=== PATIENT | male | born 1950 | race Caucasian/White ===

== ENCOUNTER 2019-11-07 10:47 | Inpatient (IN) | payer OTHER ==
[~2019-11-07] VITALS: Ht 182.9 cm; Wt 64.5 kg
[2019-11-07 11:30] LABS: ABSOLUTE NEUTROPHILS 4.5 thou/uL (1.4-8.2); BASOPHILS 0.8 % (0.0-2.0); EOSINOPHILS 3.2 % (0.0-3.0); HEMATOCRIT 41.2 % (42.0-52.0); HEMOGLOBIN 13.5 gm/dL (14.0-18.0); LYMPHOCYTES 22.9 % (24.0-44.0); MCH 33.4 pg (26.0-34.0); MCHC 32.8 g/dL (28.0-37.0); MCV 101.9 fL (80.0-100.0); MONOCYTES 11.3 % (1.0-8.0); PLATELET COUNT 153 thou/uL (150-400); POLYS 61.8 % (36.0-66.0); RBC 4.04 mil/uL (4.50-6.00); RDW 16.2 % (10.5-14.5); WBC 7.3 thou/uL (4.0-11.0)
[2019-11-07 11:40] LABS: ANION GAP 7 mmol/L (7-16); BUN 19 mg/dL (7-18); CALCIUM 9.6 mg/dL (8.5-10.1); CHLORIDE 106 mmol/L (98-107); CO2 30 mmol/L (21-32); CREATININE 1.1 mg/dL (0.7-1.3); GLUCOSE 94 mg/dL (74-106); POTASSIUM 4.1 mmol/L (3.5-5.1); SODIUM 143 mmol/L (136-145)
[2019-11-07 11:52] LABS: MAGNESIUM 2.4 mg/dL (1.8-2.4); TROPONIN-I <0.06 ng/mL (<0.06)
--- NOTE | 2019-11-07 12:48 | NUR ---
PD CALLED, THEY STATE THAT THIS PT HAS NO FILE, NO DL ON FILE. TRANSFERED TO MISSING PERSONS WHO ALSO STATE THAT THEY HAVE NO INFO ON PT
[2019-11-07 12:53] LABS: URINE BILIRUBIN NEGATIVE (Negative); URINE BLOOD NEGATIVE (Negative); URINE CLARITY CLOUDY; URINE COLOR YELLOW; URINE GLUCOSE-RANDOM* NEGATIVE (Negative); URINE KETONES NEGATIVE (Negative); URINE LEUKOCYTES-REFLEX NEGATIVE (Negative); URINE NITRITE-REFLEX NEGATIVE (Negative); URINE PROTEIN (DIPSTICK) NEGATIVE (Negative); URINE SPECIFIC GRAVITY 1.015 (1.005-1.035); URINE UROBILINOGEN 0.2 E.U./dl (0.2-1.0)
[2019-11-07 13:06] LABS: AMP/METHAMP Negative (Negative); BARBITURATES Negative (Negative); BENZODIAZEPINES Negative (Negative); COCAINE Negative (Negative); METHADONE Negative (Negative); OPIATES Negative (Negative); PCP Negative (Negative)
--- NOTE | 2019-11-07 13:43 | NUR ---
I was asked to come and assess Mary Kate to see if he would meet criteria for [facility]. Mary Kate has no teeth; he is difficult to understand. He was referred by Jeffery Salcido NP. Mary Kate has a dx of dementia. He denied and HI/SI then eh stated that he wanted to hurt himself., due to not liking himself. He appears to be paranoia and having some delusions. He is a poor historian. When asked why he presented to the hospital he stated "I need a check up." He kept telling me to "be quite". I consulted Dr. Cardoza. Ddr. Cardoza is will admit this patient to [facility]. The patient is medically stable. Please see lab reports.
--- NOTE | 2019-11-07 14:02 | NUR ---
PT TALKS ABOUT JAVIER BISHOP. NO PD NOTED FOR THAT TOWN SO ANGELIC DOWNEY CALLED AT THIS TIME. PT IS NOT KNOWN TO THIS AREA
--- NOTE | 2019-11-07 14:24 | NUR ---
PT IS NOTED TO HAVE A [facility] MEDICAL CARD. [facility] CALLED AT THIS TIME AND THEY STATES THE COMMUNITY CARE LINE WOULD HAVE INFORMATION FOR ME. THEY GIVE NEXT OF KIN SENIOR MANAGER ASSET PROTECTION/ GURDIAN #[phone]. MESSAGE LEFT
[2019-11-07 16:00] VITALS: BP 119/85
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
[2019-11-07 16:48] LABS: TSH 2.056 uIU/mL (0.358-3.740)
--- NOTE | 2019-11-07 17:48 | NUR ---
IS NOTED TO SMELL STRONGLY OF URINE UPON ARRIVAL TO FLOOR-NOTED TO BE WET FROM MID CHEST TO KNEES-RESISTIVE WITH ATTEMPTS BY NURSING TO CHANGE CLOTHES-STRIKING OUT AT NURSING STAFF-DR. ALANIS AND SECURITY NOTIFIED. GEODON 15MG GIVEN IM LVG WITH ASSIT OF SECURITY AND 3 STAFF-CLOTHING CHANGE AND PERINEAL CARE COMPLETED-SKIN ASSESSMENT COMPLETED DURING PERINEAL CARES NO OPEN AREAS OBSERVED TO SKIN-PURPLE COLORED RASH/BUMPS TO INNER THIGHS BILATERALLY-NO REDNESS OR IRRITATION NOTED. PER ORDER DR. ALANIS NO CONSENTS SIGNED ON ADMIT D/T PT SEVERE COGNITIVE DEFECITS-ADMITTED PER [facility]E ACT. PHONE NUMBER IDENTIFIED BY ER GUARDIAN CONTACTED [phone]. NO ANSWER SO MESSAGE LEFT. ANSWERING MACHINE IDENTIFIES NUMBER COMMERCIAL SERVICE TECHNICIAN LAW OFFICES OF LAURIE ALBARADO-MESSAGE LEFT TO RETURN CALL
--- NOTE | 2019-11-07 17:56 | NUR ---
ROB introduced herself to pt. She could not understand much of what he said accept that "sometimes people don't talk because they have secrets." He also asked SW if she had a . ROB contacted the rehab trainer believed to be pt's guardian and also left a msg asking for a return call. ROB team will continue to follow pt during his stay on this unit.
[2019-11-07 21:53] VITALS: BP 147/80
--- NOTE | 2019-11-07 23:16 | NUR ---
2214 RESUMMED CARE FROM DAY SHIFT, PATIENT IN DAY ROOM TALKING TO SELF SAYING OUT LOUD. PATIENT IS SAYING INAPPROPIATE THINGS LIKE SUCH MY RENETTA AND OTHER PATIENTS CAME TO NURSES STATION TO TELL. WHEN ASKING PATIENT QUESTIONS HE RAMBLES AND YOU CANNOT UNDERSTAND WHAT HE IS SAYING. PATIENT SUSPIOUS WHEN DOING ASSESSMENT, BOWEL SOUNDS PRESENT, LUNGS CLEAR, ABDOMEN SOFT. LEFT MESSAGE FOR LAURIE WIN THE PATIENT'S GUARDIAN TO CALL TO GIVE US INFORMATION ABOUT PATIENT. WILL CONTINUE TO MONITOR PATIENT FOR BEHAVIORS AND SAFETY.
[2019-11-08 07:52] VITALS: BP 115/84
--- NOTE | 2019-11-08 08:29 | EKG ---
[facility] [place] [address] ELECTROCARDIOGRAM REPORT Name: JUDE BESS Room #: [facility]- ADM IN M.R.#: [id number] Admission: 11/07/19 Attend Phys: Juanito Cardoza DO Discharge: Date of : 50 Report #: [id number] THIS REPORT FOR: cc: FAM - Family physician unknown FAM - Family physician unknown Juvenal Quintana MD [facility] THIS REPORT FOR: //name// [facility] ED Test Date: 2019-11-07 Test Time: 11:19:26 Pat Name: JUDE BESS Department: Room: [facility] Gender: M Funeral Arranger: RICHARD : 1950 Requested By: Kiran Moore Order Number: [id number] MD: Juvenal Quintana Measurements Intervals [place] Rate: 88 P: 35 CT: 148 QRS: 40 QRSD: 88 T: 86 QT: 344 QTc: 417 Interpretive Statements Sinus rhythm Abnormal R-wave progression, early transition Abnormal T, consider ischemia, anterior leads No previous ECG available for comparison Electronically Signed On 11-08-2019 8:28:14 SHOE SEWING MACHINE OPERATOR AND TENDER by Juvenal Quintana [email or web address] <ELECTRONICALLY SIGNED> By: Juvenal Quintana MD, FACC 11/08/19 0828 1119 1119 Juvenal Quintana MD, [facility] /EPI
[2019-11-08 11:25] VITALS: BP 115/84
--- NOTE | 2019-11-08 11:35 | NUR ---
ASSUMED CARE AT 0700 THIS MORNING. PT. UP ON THE FLOOR CONTINUALLY TALKING. SOME OF IT IS UNINTELLIGABLE. OTHER IS CALLING STAFF AND PEERS NAMES AND CURSING. "I HATE YOU. I COULD HURT YOU! I COULD MURDER YOU." ARE SOME OF THE THINGS HE IS SAYING. DR. ALANIS STATED HE FOUND OUT THE PT. IS A ELOPED PATIENT FROM [facility]. PT. DOES NOT ANSWER QUESTIONS. HE JUST CONTINUES TO TALK AND TALK. UNABLE TO COMMUNICATE EFFECTIVELY.
--- NOTE | 2019-11-08 12:33 | NUR ---
ROB received a call from alleged guardian Kiran Andujar who said he wants pt back at [facility]. He said pt wandered out of facility, which he has never done before, and ended up in [place]. He said he has been pt's guardian for 30 years. ROB asked Kiran for the guardianship docs and he said " I have court for the next two days. I'll get to it when I can." ROB expressed that it is imperative the hospital receives this doc as it is being reported that he only has conservatorship. He said to SW "well maybe I shouldn't talk to you. You don't have a release for me to be able to talk to you." ROB explained that in order for and the hospital to follow his wishes they need to have the document stating he is guardian. He took SW email info, and said he will "get to it when he can." He then also let SW know that the process is already done so it really doesn't matter at this time. ROB and Dr. Cardoza contacted [facility] in search of the document. They were told by the parts control clerk the document is so old that they have to go into a special file to get it. Dr. Cardoza asked the parts control clerk how to file a complaint about a guardian who may not be as involved as he should due to pt being missing from facility for hours without a report made and his whereabouts known from the facility and the guardian. ROB and Dr. Cardoza were rerouted to the furnace room supervisor who asked the complaint be put on letterhead from the doctor and then faxed; she will then notify the evening sitter. ROB contacted Jasiel Grace with [facility] as she as advised by Dr. Cardoza they would be on the unit to visit pt at 12. At 12:15 Jasiel still had not arrived. She was told by Jasiel they would be on their way soon. ROB asked him if the could provide a medication list as the hospital does not have that. ROB also asked if he could provided the conservatorship/guardianship doc as the hospital needs it. Jasiel said Kiran is conservator and not guardian. ROB reported that Kiran is stating differently and the hospital really needs to know. He reported he would be at the hospital soon. ROB contacted the [facility] transfer team to inquire if they have the document. No answer. ROB lft msg. ROB team will continue to follow pt during his stay on this unit.
[2019-11-08 19:38] VITALS: BP 118/86
--- NOTE | 2019-11-08 21:36 | H ---
[facility] [place] [address] HISTORY AND PHYSICAL Name: JUDE BESS Room #: 527A-A ADM IN M.R.#: [id number] Admission: 11/07/19 Attend Phys: Juanito Cardoza DO Discharge: Date of : 50 Report #: [id number] THIS REPORT FOR: cc: KIM - Family physician unknown FAM - Family physician unknown Juanito Cardoza DO ~ CC: Juanito ALVAREZ unknown DATE OF SERVICE: 11/07/2019 ATTENDING PHYSICIAN: Juanito Cardoza DO. DOCENT COORDINATOR: Dr. Garcia. REASON FOR ADMISSION: Found grossly disoriented and incoherent on the streets in [place], initially brought to the [facility] and then sent to [facility]. HISTORY OF PRESENT ILLNESS: This is a 69-year-old male brought to the [place] [facility] by paramedics after she was picked up on the streets. She is extremely demented. Patient is disoriented and incoherent, cannot answer questions in linear manner. He claims he has too many children. He does say he does not have anywhere to live. He cannot tell me how he has been finding food, usp. He has ugly thoughts. He seems acutely confused, not alert to time and situation. He states he would like to work, but he does not have mental capacity to work given his presentation today. He repeatedly says that he does not want to go to the place he comes from. Last evening, the staff ordered and believed the patient had been living in a different city. The patient has some previous records with [facility]. The patient denies drug or illicit drug use, so that was the subjective from his [facility] crisis assessment and they really did not have any more information. My colleague, Mr. Salcido who saw him there. Then when he was brought to the [facility] really we were not able to get any further history. A huge workup was done. Hematology was H and H is 13.5 and 41.2, white count 7.3, platelet count 153. Chemistry: Sodium 143, potassium 4.1, chloride 106, bicarb 30, anion gap 7, BUN 19, creatinine 1.1, estimated GFR 66, glucose 94, calcium 9.6, magnesium 2.4. Ammonia 12. Troponin less than 0.06. Vitamin B12 of 828. TSH 2.056. Urinalysis was negative, so clean urine, drug screen was negative. VITAL SIGNS: Roughly at the time of Emergency Room presentation, temperature 38.1, pulse 70, respirations 18, BP 147/80. Later decreasing to 115/84, O2 sat 97%. [facility] [address] [place] [address] HISTORY AND PHYSICAL Name: JUDE BESS Room #: 527A-A ADM IN M.R.#: [id number] Admission: 11/07/19 Attend Phys: Juanito Cardoza, DO Discharge: Date of : 50 Report #: [id number] Given his gross degree of disorganization, comprehensive review of systems was not possible. CT head showed mild diffuse cerebral atrophy, no acute intracranial processes. Chest x-ray showed no acute cardiopulmonary abnormality. PHYSICAL EXAMINATION: He ambulates. He is very disheveled. MENTAL STATUS EXAMINATION: This is a well-developed, frail, much older appearing than stated age male. Attention limited. Concentratio n limited. Speech variably coherent. Thought process tangential. Thought content: Intermittent bizarre themes, thought poverty, some psychomotor agitation and psychomotor retardation. Denied SI or HI. Endorses helplessness, hopelessness. Memory grossly impaired. Insight impaired. Judgment impaired. Fund of knowledge well below average. FORMULATION: A 69-year-old male brought by police to [facility] and then sent to us. He is obviously has a home with caregivers and my suspicions were correct. He had eloped from nursing facility though the facility does not provide a memory care. DIAGNOSES: Major neurocognitive disorder, unspecified, with some degree of unspecified behavioral disturbance. Long history of schizophrenia. Comorbidities include none noted. Interestingly, he does have VA card, but does not seem to be helping him in present circumstances. PLAN: Evaluate, stabilize, obtain collateral. I received a call from Mr. Andujar, his alleged guardian and conservator stating he wanted him to go back to [facility]. Jaciel, the junior linux systems administrator at [facility] called me and said Mr. Andujar is his conservator. In any event, I will call the [facility] district court and I needed to pull the orders on ?Guardianship but we will see what they are. In addition, we will need a day or so to complete our usual initial evaluations, so I do not know that I will be able to discharge him today. ESTIMATED LENGTH OF STAY: 3-5 days. STRENGTHS: He has a guardian, place to live. WEAKNESSES: Advanced dementia, long history of schizophrenia [facility] [address] [place] [address] HISTORY AND PHYSICAL Name: JUDE BESS Room #: 527A-A ADM IN M.R.#: [id number] Admission: 11/07/19 Attend Phys: Juanito Cardoza DO Discharge: Date of : 50 Report #: [id number] greater than ninety minutes spect in history and corrdination of care with <ELECTRONICALLY SIGNED> By: Juanito Cardoza DO 11/08/19 2136 1033 1107 Juanito Cardoza DO /nt
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
--- NOTE | 2019-11-09 09:23 | NUR ---
PT OUT OF BED PER DR. QUESADA GETTING HIM OUT OF BED IN W/C TO GO TO GROUP. PT WAS TOO DISRUPTIVE DURING THE GROUP AND HAD TO GO TO BACK OF ROOM. PT RAMBLING AND REPEATING SELF. NO SIGNS OF AGGRESSION AT THIS TIME. PT TOOK AM MEDS CRUSHED IN YOGART. PT DIDN'T REFUSE ANY MEDS.
--- NOTE | 2019-11-09 09:35 | NUR ---
PT TOOK MEDS CRUSHED IN YOGART. PT DID DRINK A WATER PITCHER FULL OF WATER.
[2019-11-09 13:06] VITALS: BP 95/61
--- NOTE | 2019-11-09 15:11 | NUR ---
6479 [id number] Mary Kate came to group late. [facility] group was lead by Melinda in kait. Mary Kate sat in the back of the room talking loudly to himself and someone who was not present. He did not participate in group.
--- NOTE | 2019-11-09 15:50 | NUR ---
PT IN ROOM DURING GROUP TIME [id number], PT SAT QUIETLY. PT HAS BEEN LYING HEAD ON TABLE AND DROOLING EARLIER TODAY. PT TALKING TO SELF.
--- NOTE | 2019-11-09 18:15 | NUR ---
PT UP TO BATHROOM WITH STAND-BY ASSIST. PT HAD LARGE FORMED STOOL. NO ISSUES FROM PATIENT TODAY. PT DID HAVE COPIOUS AMOUNT OF DROOL WHEN SLEEPING TODAY WITH HEAD DOWN ON TABLE IN DINING ROOM.
[2019-11-09 19:59] VITALS: BP 104/61
--- NOTE | 2019-11-09 21:19 | NUR ---
Care assumed of patient at 1915: Patient sleeping in bed at start of shift. Easily arousable. Appears to be calm. Patient responding to name being said. Unable to answer any further questions. Blunted, constricted affect. No aggression shown. Patient started to have mumbled speech when he was awakened for nursing assessment and medication administration. Patient was able to fall back to sleep without difficulty. Patient took HS medication crushed without difficulty. No s/s of SI/HI/AH/VH. No delusional or paranoia behaviors observed. No s/s of pain or discomfort. Patient incontinent of bladder. Compliant during padmini care and linen change. Patient continues to rest quietly at this time.
[2019-11-10 06:17] LABS: CALCIUM 8.5 mg/dL (8.5-10.1); CREATININE 1.1 mg/dL (0.7-1.3); POTASSIUM 4.1 mmol/L (3.5-5.1)
[2019-11-10 08:50] VITALS: BP 116/71
[2019-11-10 09:38] VITALS: BP 116/71
--- NOTE | 2019-11-10 10:03 | NUR ---
ASSUMED CARE AT 0700 THIS MORNING. PT. IN BED. GOTTEN UP BY THIS RN AND ANOTHER RN. HE WAS INCONTINENT AND THE BED WAS WET. PT. CLOTHING CHANGED. LOLITA CARE ADMINISTERED. CLEAN CLOTHING PUT ON PT. ALONG WITH CLEAN BRIEFS. HIS BED WAS CHANGED. PT. GIVEN MORNING MEDICATIONS (CRUSHED AND IN PUDDING). HE TOOK THE MEDICATIONS WITHOUT DIFFICULTY. PT. TAKEN TO THE DINING ROOM FOR BREAKFAST. HE WAS COOPERATIVE WITH ASSESSMENT. HE SAT IN THE DINING ROOM AFTER BREAKFAST WATCHING TV. HE WAS QUIET WHILE SITTING THERE.
[2019-11-10 20:07] VITALS: BP 112/73
--- NOTE | 2019-11-10 21:45 | NUR ---
Care assumed of patient at 1915: Patient sleeping in bed at start of shift. Patient up at approximately 2000, needing to use the bathroom. Continent of bowel and bladder. Fairly steady on his feet. Patient impulsive with movements, ataxia present. Alert and oriented to person only. Confused and forgetful. Denies pain or discomfort. Patient slow to respond to questions during assessment. Denies SI/HI/AH/VH. Patient repeating several sentences over and over. Patient did tell nurse "I don't like you" several times. Patient then also speaking about a godfather and prayer. Patient did tell nurse "you are making me want to hit you" but never acted on it. Nurse stepped away for a couple minutes and when nurse returned, he seemed to forget prior statements. Patient labile, agitated when asked more than a couple questions. Patient took HS medication crushed without difficulty. Declined further HS snack. Patient was able to return to bed after using the bathroom and was able to fall asleep without difficulty. Patient resting quietly in bed at this time.
[2019-11-11 08:52] VITALS: BP 92/62
[2019-11-11 13:03] VITALS: BP 92/62
--- NOTE | 2019-11-11 13:11 | NUR ---
ASSUMED CARE AT 0700 THIS MORNING. PT. IN BED. PT. GOT UP, NEEDED BRIEFS AND PANTS CHANGED DUE TO INCONTINENCE. HE CONTINUES TO BABBLE ON AND MAKES SENSE OCCASIONALLY. OTHERWISE, HE TALKES IN A WORK SALAD, WITH A FEW COHERENT SENTENCES OCCASIONALLY. MOST OF HIS VERBALS ARE THREATENING PEOPLE WITHOUT ACTING ON THOSE THREATS. HE HAS NOT BEEN LOUD TODAY OTHER DAYS. NO LOUD YELLING NOTED. MOSTLY HE WILL SIT WATCHING TV OR PEERS WITHOUT LOTS OF CONVERSATION. TOOK HIS MEDICATIONS CRUSHED IN PUDDING WITOUT PROBLEMS NOTED. DR. GARDINER HERE TO SEE THE PATIENT THIS AFTERNOON.
[2019-11-11 19:42] VITALS: BP 118/82
--- NOTE | 2019-11-12 02:00 | NUR ---
PT IN WC IN DAY ROOM. VERY AGITATED. DENIES PAIN. HEADED TO ROOM TO GO TO BATHROOM. ASSISTED TO BEDSIDE COMMODE. ENCOURAGED TO GO TO BED WHICH HE DID. ENCOURAGED TO TAKE HS MEDS WHICH HE FINALLY DID. RESTING COMFORTABLY. FREQUENT OBSERVATION.
[2019-11-12 08:00] VITALS: BP 95/59
--- NOTE | 2019-11-12 09:24 | NUR ---
SW completed chart review and pt seems to be making gains. and [facility] with the [facility].
--- NOTE | 2019-11-12 11:58 | NUR ---
ROB contacted the [facility] and asked for the contact information for their director in their inpatient unit. ROB was given instead the number to the exchange trouble shooter Dr. Rich [phone]; she was told he would be paged to speak to the [facility] director at [facility]. ROB provided an update to the [facility] director. ROB team will continue to follow pt during his stay on this unit.
--- NOTE | 2019-11-12 14:13 | NUR ---
WITHDRAWN TO ROOM UNTIL APPROX. 1030-SPEECH IS LOUD AND AT TIMES GARBLED AND DIFFICULT TO UNDERSTAND. IS ON [place] RISK D/T UNSTEADY GAIT AND IMPULSIVE ERRATIC BEHAVIOR. ORIENTED TO NAME ONLY-DID COMPLY WITH TAKING AM MEDICATIONS WHOLE. REMOVING CHAIR EXIT ALARM UNDER HIM AND BECAME AGITATED AND STARTED TO YELL LOUDLY AT THIS NURSE WHEN REDIRECTED-ATTEMPTING TO GRAB ARM OF NURSING STAFF. APPETITE FAIR- INCONTINENT OF URINE
[2019-11-12 19:30] VITALS: BP 134/88
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
[2019-11-13 09:12] VITALS: BP 128/84
[2019-11-13 09:51] VITALS: BP 128/84
--- NOTE | 2019-11-13 13:29 | NUR ---
Assumed care aorund 0700. Patient is in room air. Lungs are clear. he is on mechanical ground diet and ensure because he has no teeth. patient denies pain. His speech is not clear: mumbles, gramble and rumblling. This morning he got agitated by the patient next to him because he didnt want him talking to him. Patient meds crushed and he takes with food or pudding. Patient refused to work with PT. He gets agitated quickly especially if someone keeps talking to him. Refused to answer about SI/HI and how he is feeling. Will continue with the plan of care.
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
[2019-11-13 19:21] VITALS: BP 104/75
--- NOTE | 2019-11-13 23:16 | NUR ---
Care assumed of patient at 1915: Patient seated in w/c in the dayroom at start of shift. Patient propelling w/c about dayroom and hallway near nurses station. Patient smiling, waving, calm, cooperative. Alert and oriented to person only. Speaking to himself in mumbled voice. Unable to distinguish what patient was saying. No vulgar or hostile statements heard. Patient compliant with nursing assessment. Patient ate 100% snack independently. Patient took HS medication whole without difficulty. Nurse stated "thank you" once he took his meds. Patient stated "why are you smiling?" Nurse said she was happy, patient then looked away and was not aggressive in any manner. No agitation observed. Patient stated he was tired. Staff assisted him to bed. Incontinent of bladder. Transferred to bed with stand by assist. No difficulties noted. Patient fell to sleep without difficulty and has been resting quietly since.
[2019-11-14 13:14] VITALS: BP 115/73
--- NOTE | 2019-11-14 13:49 | NUR ---
ASSUMED CARE OF PATIENT. PATIENT SITTING IN WC IN [place]. DENIES NEEDS WHEN ASKED IF NEEDING ANYTHING. PATIENT DIFFICULT TO UNDERSTAND WITHOUT GETTING CLOSE TO HIM. PATIENT AT TABLE FOR BREAKFAST, EATING WELL. TAKES MEDS WHOLE WITHOUT DIFFICULTY. THIS AFTERNOON PATIENT REFUSES LAB DRAW, UNABLE TO TALK TO THIS PATIENT IN REGARDS TO LAB DRAW, PATIENT GETS UPSET. WILL ATTEMPT LATER. WILL NOTIFY
--- NOTE | 2019-11-14 16:07 | NUR ---
PATIENT SITTING IN WHEEL CHAIR IN HALLWAY. WHEN ASKED IF HE WOULD LIKE SOME WATER PATIENT SOFTLY RESPONDS BY STATING "NO, DO YOU KNOW WHY I DO NOT WANT TO DRINK OR EAT, BECAUSE THE GODFATHER MUST BE HEALTHY AND I AM NOT HELTHY ANYMORE". FIBER PRODUCT CUTTING MACHINE OPERATOR EXPLAINS THE BENIFIT OF STAYING HYDRATED AND PATIENT REPEATS THE PREVIOUS PHRASE. PATIENT THEN SMILES AND STARTS TO LAUGH. WILL CONTINUE TO OBSERVE FOR BEHAVIORS.
[2019-11-14 16:56] LABS: ABSOLUTE NEUTROPHILS 3.6 thou/uL (1.4-8.2); BASOPHILS 1.2 % (0.0-2.0); EOSINOPHILS 3.7 % (0.0-3.0); HEMATOCRIT 39.7 % (42.0-52.0); HEMOGLOBIN 13.1 gm/dL (14.0-18.0); LYMPHOCYTES 30.3 % (24.0-44.0); MCH 33.1 pg (26.0-34.0); MCV 100.4 fL (80.0-100.0); PLATELET COUNT 180 thou/uL (150-400); POLYS 53.8 % (36.0-66.0); RBC 3.95 mil/uL (4.50-6.00); RDW 15.6 % (10.5-14.5); WBC 6.7 thou/uL (4.0-11.0)
--- NOTE | 2019-11-14 17:06 | NUR ---
ROB did a chart review on pt. He was also discussed in tx team. Pt will be ready for discharge once the [facility] can provide a secure and safe area for him to reside in. SW team will continue to follow pt during his stay on this unit.
[2019-11-14 20:13] VITALS: BP 107/77
[2019-11-14 21:00] VITALS: BP 107/77
--- NOTE | 2019-11-15 00:36 | NUR ---
Assumed care of patient this pm shift. Patient in a wheel chair outside of the [facility]. Patient is calm and cooperative. Patient rambles and is very difficult to understand. Patient does not show any signs of aggression. Patient took medications whole with fluids. Patients affect is blunted. Patient denies pain. Patient denies hi/si. Patients assessment shows clear breath sounds diminished in bases, active bowel sounds, and s1 s2 heard with auscultation. We will continue to monitor.
[2019-11-15 08:59] VITALS: BP 103/66
[2019-11-15 16:05] VITALS: BP 103/66
--- NOTE | 2019-11-15 16:45 | NUR ---
PATIENT HAS BEEN UP AND OUT ON THE UNIT, USES WHEELCHAIR FOR MOBILITY, ABLE TO AMBULATE WITH ASSIST OF ROLLER WALKER WITH STAFF BY HIS SIDE. PATIENT TOOK ALL MEDICATIONS WHOLE WITHOUT DIFFICULTY. PATIENT RESPONDS TO INTERNAL STIMULI, TALKING TO SELF, AND UNSEEN OTHERS. PATIENT IS RELIGIOUSLY PREOCCUPIED, "AM TALKING TO GOD, PRAY ITS GOOD TO PRAY". PATIENT IS EATING MEALS, AND DRINKING FLUID FAIRLY WELL. AFFECT IS FLAT, MOOD IS BLUNTED. PATIENT DENIES SUICIDAL/HOMICIDAL IDEATION, NOT COGNITIVE ENOUGH TO RESPOND TO FURTHER ASSESSMENT QUESTIONS, HE MUMBLES. NO AGGRESSION OR AGITATION NOTED AT THIS TIME, NO SIGN OF ACUTE DISTRESS NOTED, WILL MONITOR FOR SAFETY.
--- NOTE | 2019-11-15 17:08 | NUR ---
ROB contacted the MD transfer line and spoke to Sophia (RN) who said if pt does not need inpatient psych, then he would not be appropiate to come there. ROB explained the email says when he is stable to transfer him there. She said if he has dementia he is not appropiate for their unit and should simply be placed into a facility. ROB explained that the [facility] director has been attempting to contact their director or quality assurance monitor chassis Dr. Rich. She said Dr. Rich is most likely out of the country, and [facility] probably hasn't gotten a call back because they are dealing with the Mejias virus. She took the [facility] director's information down and said she would have someone call. SW team will continue to follow pt during his stay on this unit.
[2019-11-15 20:29] VITALS: BP 111/75
--- NOTE | 2019-11-15 21:56 | NUR ---
Care assumed of patient at 1915: Patient seated in w/c in hallway at start of shift. Patient sat in dayroom or hallway near nurses station for the first part of shift. Patient alert and oriented to person only. Confused and forgetful. Less mumbling and speaking to himself. Patient did have garbled speech, unaware what was said, then he starts to laugh and say "you know". Much more calm and cooperative compared to previous shifts. Patient fed self 100% HS snack of ice cream. Took HS medication whole with water. Denies pain or discomfort. Euthymic affect. Denies SI/HI/AH/VH. No delusional or paranoia behaviors observed. Patient incontinent of bladder. Allowed staff to assist him in changing his clothing and completing padmini care. Patient attempting to complete ADLs independently. Impulsive body movements noted due to ataxia. Good balance, fairly steady gait. Using w/c for locomotion about room and unit. Patient retired to bed without difficulty and is resting quietly at this time.
[2019-11-16 07:20] VITALS: BP 112/58
[2019-11-16 11:23] VITALS: BP 112/58
--- NOTE | 2019-11-16 12:47 | NUR ---
PATIENT WAS IN BED SLEEPING WHEN CARE ASSUMED. WHEN AWOKEN, HE WAS ABLE TO TRANSFER SELF FROM BED TO WHEELCHAIR, BED/CHAIR ALARM IN PLACE. PATIENT IS ABLE TO TRANSFER SELF TO TOILET WITH STANDBY ASSIST. PATIENT TOOK ALL MEDICATION WHOLE WITHOUT DIFFICULTY. PATIENT IS EATING MEALS, AND DRINKING FLUID WELL. PATIENT DENIES SUICIDAL/HOMICIDAL IDEATION, NOT ABLE TO APPROPRIATELY RESPOND TO FURTHER ASSESSMENT QUESTIONS DUE TO COGNITIVE IMPAIRMENT. PATIENT MUMBLES, HE IS FORGETFUL, AND CONFUSED. HE IS CLAM, COOPERATIVE WITH CARE. MOOD IS EUTHYMIC, AFFECT IS BLUNTED. PATIENT HAD URINE INCONTINCE X 1, GOOD PERICARE PROVIDED BY STAFF. NO SIGN OF ACUTE DISTRESS NOTED AT THIS TIME, WILL MONITOR FOR SAFETY.
[2019-11-16 20:23] VITALS: BP 127/83
--- NOTE | 2019-11-16 22:40 | NUR ---
Care assumed of patient at 1915: Patient seated in w/c at first part of shift then shortly retired to bed. Calm, pleasant and cooperative. Mumbled, spontaneous speech. Some words are not able to be understood. Patient did state "I've been taking meds my whole life" when presented with HS meds. Patient then chuckled. Patient has been smiling and appears to be making jokes but are not understood. Patient did ask nurse if he could pray. No speak of the devil, threatening statements or aggression observed. No delusional or paranoia behaviors observed. Denies SI/HI/AH/VH. Denies pain or discomfort. Declined HS snack. Took HS medication whole without difficulty. Incontinent of bladder. Cooperative with padmini care and linen change. Blunted affect observed which appears to be his baseline. Denies depression or anxiety. Patient has been able to rest quietly this shift.
[2019-11-17 08:35] VITALS: BP 107/77
--- NOTE | 2019-11-17 14:42 | NUR ---
COMPLIENT WITH TAKING 6 DEPAKOTE SPRINKLE TABLETS IN ADDITION TO 6 CLOZARIL TABS AND OTHER AM MEDICATIONS SCHEDULED. SPEECH IS GARBLED AND DIFFICULT TO UNDERSTAND AT TIMES-BUT DOES COMPLY WITH ALL VERBAL REQUESTS OF STAFF SO FAR TODAY. WHEN ASKED IF THERE WAS ANYTHING HE NEEDED RESPONDS "SOME RED OR BLACK LICORICE" AND IS SMILING BROADLY WHEN STATING THIS. DOES ATTEND SCHEDULED GROUP BUT RETURNS TO ROOM/BED SHORTLY AFTER MEALS AND LITTLE NOTED INTERACTION WITH PEER GROUP. LESS IMPULSIVE IN MOVEMENT AND WILL ALLOW STAFF TO ASSIST WITH CARES AND TRANSFERS REMAINS ATAXIC-BED ALARM AND CHAIR ALARM IN USE TO PREVENT FALLS. BRIEF CHANGED WITH ASSIST OF 1 STAFF AND WAS NOT AGITATED OR COMBATIVE WITH THIS.
[2019-11-17 20:53] VITALS: BP 105/74
--- NOTE | 2019-11-18 02:31 | NUR ---
PATIENT ASSESSED AND ALERT X SELF.SKIN WARM AND DRY. RESP EVEN AND UNLABORED. LUNGS CTA. SITTING IN W/C FOR MEALS AND STROLLS UP AND DOWN THE HALLS. PLACED TO BED AND BED ALARM ON. DOES STAND UP TO TOLIET WITH SOME ASSISTANCE TO AND FROM W/C. IS ALITTLE SHAKY ON FEET. HAS SOME INCONTIENCE NOTED WEARS A BREIF. LAST BM WAS 11/17/19. DENIES ANY PAIN OR NEEDS. TAKES MEDICATION WELL WITH WATER. SNACK PROVIDED. GETS IRRITABLE AT TIMES, BUT CALMS DOWN AFTER TASK IS DONE WITH HIM. NO SI/HI NOTED. HAS SOME RED SPOTS ON LOWER EXTREMITIES. HAS BEEN COOPERATIVE THIS SHIFT SO FAR. CONT PLAN OF CARE.
[2019-11-18 08:23] VITALS: BP 113/60
--- NOTE | 2019-11-18 10:08 | NUR ---
VISIBLE IN DAYROOM EATING BREAKFAST UPON INITAL ASSESSMENT. COOPERATIVE WITH TAKING SCHEDULED AM MEDICATIONS WHOLE-DENIES C/O PAIN/DISCOMFORT. ORINTED TO NAME ONLY-REQUIRES SBA X1 TO TRANSFER TO AND FROM TO BED/TOILET. TOILET 0FFERED 2 HOURS-REFUSED AT 0800 D/T EATING BREAKAST-INCONT SMALL AMOUNT URINE BUT COOPERATIVE WITH BRIEF CHANGE AND PERINEAL CARE COMPLETED AT 1000-APPETITE FAIR-STATES DOES NOT WANT GROUND MEAT BUT UNABLE TO CHEW D/T NO TEETH. FLIRTATIOUS WITH NURSING STAFF
--- NOTE | 2019-11-18 16:07 | NUR ---
AT NURSES STATION ASKING U.S. FOR GUM WHEN INFORMED SHE DIDN'T FEEL THAT WOULD BE SAFE D/T HIS HAVING NO TEETH JUDE BEGINS TO YELL AT HER"YOU JUST DON'T LIKE ME-MY MOTJHER DIDN'T LOVE ME-YOU ARE LIKE HER" IRRITABLE-OFFERED SOFT SNACK BUT REFUSES CROSSING ARMS OVER CHEST AND STATING "I WANT GUM"
[2019-11-18 19:30] VITALS: BP 105/71
[2019-11-18 20:45] VITALS: BP 105/71
--- NOTE | 2019-11-18 23:40 | NUR ---
PATIENT WAS UP IN HALLWAY IN FRON OF NURSE'S STATION [facility] UNTIL BEDTIME. HE WAS ASSISTED X 2 TO THE BATHROOM WHERE HE DID SOME VERY SOFT UNFORMED BM. THIS IS 2ND FOR THE DAY. HELD HIS DOCUSATE NA AT . PATIENT IS DIFFICULT TO UNDERSTAND. HE DID HAVE SHOWER TODAY AND WAS SHAVED. HE DENIES PAIN. PATIENT IS ABLE TO WHEEL HIMSELF IN . HE IS INCONTINENT AND IS ASSIST X1 WITH TOILETING AND NEEDS TO HAVE STAFF FEED HIM D/T ATAXIA. PATIENT HAS BEEN CALM, SMILING AND COOPERATIVE [facility]. HE TOOK HIS HS MEDS WHOLE WITH WATER. BED IN LOW POSITION. CONTINUED ROUNDING FOR SAFETY ASSESSMENT.
[2019-11-19 08:49] VITALS: BP 116/69
--- NOTE | 2019-11-19 12:17 | NUR ---
Lying supine in bed without s/o distress. Orientated to person and place but not to day. Denies SI/HI. Garbled speech so of which is understandable. Calm and cooperative, compliant with meds. Able to transfer self to and bed and toilet with minimal assistance. Brushed teeth independently this AM. Breath sounds clear t/o, bilaterally equal. Reg HR auscultated. Face with decker overtones but nailbeds pink with brisk capillary refill and palpable peripheral pulses. Yellow urine per toilet. Active bowel sounds over soft, flat abdomen.
[2019-11-19 20:33] VITALS: BP 110/75
--- NOTE | 2019-11-20 05:56 | NUR ---
ASSUMED CARE OF PT AT 1900HRS. PT WAS CALM AND COOPERATIVE THIS SHIFT. PT NEEDS HELP TO THE BR ON HIS WC. PT TOOK ALL PO PILLS WHOLE WITH WATER. PT DENIED SI/HI THIS SHIFT. PT WAS ABLE TO GET COMFORTABLE AND SLEEP PART OF THE SHIFT. VSS AND NO S/S OF ACUTE DISTRESS. WILL CONTINUE TO MONITOR.
[2019-11-20 07:48] VITALS: BP 120/68
--- NOTE | 2019-11-20 09:22 | NUR ---
Nutrition: Following for oral intake. Pt noted to have garbled speech, difficult to understand. Spoke to nursing staff this a.m. to discuss nutrition updates and if any changes needed to nutrition care plan. Staff report pt did extremely well this a.m. walking from room to dining area for meal. Ate 100% of meal, plus 100% Ensure supplement. Nsg indicate pt does well at most meals, does report strong dislike of ground meats. Ground diet likely chosen as pt noted to be lacking teeth. Will inquire about this at team meeting 11/20 to see if even a soft diet could be a possibility to further boost PO intake. Overall, pt averaging nearly 80% of meals the last 2 days, eating 70-100% of most meals overall this past week. Typically completing 100% of 1 daily Ensure most times (receives BID). Staff continue to feed pt d/t ataxia, but able to picker and packer cup/drink Ensure on own. Recent BM 11/17. No new wt's, remains at 141.5#, but BMI staying > 19. Change to low nutrition risk given consistent PO trends and ongoing close staff involvement in assisted feeding each meal.
--- NOTE | 2019-11-20 15:00 | NUR ---
DENIES SOMPLAINTS DURING AM PHYSICAL ASSESSMENT WITH THIS RN-STATES BOWELS ARE MOVING"A LOT" AND LAST BM DOCUMENTED 11/18-ABDOMEN SOFT NON-TENDER. BS ACTIVE X4. GAIT STEADY WITH SBA X1 AND HAS BEEN GETTING SELF TO AND FROM TOILET WITH MINIMAL ASSSIT-DOES REQUIRE ASSIST WITH PULLING OFF/PUTTING ON NEW BRIEF-LESS IMPULSIVE BUT GAIT REAMINS ATAXIC,UNCOORDINATED AT TIMES. SPEECH GARBLED AND DIFFICULT TO UNDERSTAND-TOOK ALL OF MULTIPLE AM MEDICATIONS 6 DEPAKOTE SPRINKLE TABS AND 6 CLOZARIL TABS WHOLE WITH WATER. FEEDING SELF AT MEALS WITH ONGOING SUPERVISIONAN AND BACK UP IF NEEDED-PO INTAKE NOTED TO BE IMPROVED.DOES ATTEND SCHEDULED GROUPS WITH SOME PROMPTING.
[2019-11-20 19:31] VITALS: BP 97/66
[2019-11-20 22:28] VITALS: BP 97/66
--- NOTE | 2019-11-21 06:02 | NUR ---
PATIENT WAS CALM AND COOPERATIVE AND SMILING LAST NIGHT HE SAT IN THE DINING ROOM SPEAKING TO A FEW PEOPLE. UNABLE TO FULLY UNDERSTAND HIS LANGUAGE BUT CAN MERCHANDISE DISTRIBUTOR A FEW WORDS AND GET THE CONCEPT OF WHAT I THINK HE'S TRYING TO SAY. HE CONTINUES TO BE INDEPENDENT HE CAN WITH SELF CARES AND DOES ASK FOR HELP WHEN NEEDED. HE STILL NEEDS SUPERVISION AT TIMES IN HELPING HIM WITH INCONTINENCE CARES AND SHOWERING/SHAVE. PATIENT DENIES PAIN. HE IS A/0 X2. HE HAS SLEPT THRU NIGHT WITHOUT INCIDENT. CONTINUING TO MONITOR.
[2019-11-21 08:54] VITALS: BP 106/52
[2019-11-21 12:51] VITALS: BP 106/52
--- NOTE | 2019-11-21 15:48 | NUR ---
Date of Admission: 11/07/19 Date of Activity Therapy Assessment: 11/10/19 Activity Goal: Increase engagement Initial Goal: 1 Group activity/day Weekly progress towards goal: On track Group participation level: Improving Behaviors observed: Patient is beginning to engage socially in therapeutic milieu. He responds particularly strongly to music groups. Patient requires assistance in participation but does not display any aggression. Plan: No change towards goal
--- NOTE | 2019-11-21 15:56 | NUR ---
ROB and psych doctor contacted Keren Frye about pt and provided her an update, and asked her if guardianship would be an appropiate step for pt. She said that she believes he is a [place] guardianship case since he has resided at [facility] for 10 years, and that it will be the P.A. guardian's task to decide about his funding situation. Dr. Cardoza asked her to contact Kiran Ventura and talk to him about the decision making of pt including that he needs another facility that is more secured. Keren said she would contact him and pt's ; ROB provided the phone numbers for both. She said she would call back once she has made contact with either. ROB team will continue to follow pt during his stay on this unit.
--- NOTE | 2019-11-21 16:02 | NUR ---
PATIENT HAS BEEN UP IN WHEELCHAIR, AND OUT ON THE UNIT MOST OF THE DAY. PATIENT IS ABLE TO PROPELS SELF. HE IS CALM, COOPERATIVE WITH CARE. PATIENT TOOK ALL MEDICATIONS WHOLE WITHOUT DIFFICULTY. HE IS EATING MEALS, AND DRINKING FLUID WELL. PATIENT DENIES SUICIDAL/HOMICIDAL IDEATION, PATIENT IS NOT COGNITIVE ENOUGH TO APPROPRIATELY RESPOND TO FURTHER ASSESSMENT QUESTIONS, HE RAMBLES, DIFFICULT TO UNDERSTAND AT TIMES. AFFECT IS FLAT, MOOD IS BLUNTED. PATIENT DENIES HAVING PHYSICAL PAIN, HAD BOWEL MOVEMENT THIS MORNING. NO SIGN OF ACUTE DISTRESS NOTED, WILL MONITOR FOR SAFETY.
[2019-11-21 19:07] VITALS: BP 96/75
--- NOTE | 2019-11-21 22:47 | NUR ---
Assumed care on 11/21/19 @ 1900, sitting in w/c propelling self in hallway and day room. Ashley is mumbled and unclear, able to understand about 50% of speach. Cooperated with assessment, hrrr, lungs diminished in lower muñoz, abd n x 4Q. Incontinent of urine, able to transfer to bs. Took meds whole with water. When told "good job" by this nurse for taking his meds well, he responded, "good for nothing" and then laughed. He reported general pain and accepted tylenol 650 for general pain, rated pain as a 5/10, follow up for pain, observed to be sleeping in bed, eyes closed, respirations even and unlabored. Will continue to monitor.
[2019-11-22 00:40] VITALS: BP 96/75
--- NOTE | 2019-11-22 06:02 | NUR ---
slept 9.2 hours overnight
[2019-11-22 09:22] VITALS: BP 108/76
--- NOTE | 2019-11-22 11:21 | NUR ---
ROB received a call from Betzaida with [place] [facility] team stating that ROB should contact the transfer team [facility]. Her number is [phone]. ROB contacted the transfer team and spoke with Sophia who initially said she did not give the okay for pt to transfer. ROB explained to her the message she received, and ROB was asked to fax pt's consent to transfer, medical records, and verification that he has been screened for COVID-19. ROB asked if there was a form the [place] could send for the consent to transfer and she advised ROB to use the EMTALA form. ROB also called Betzaida back and spoke to the receptionst; ROB asked if there was anyway Betzaida can assist with this discharge as the transfer team has not been willing to accept pt in the past. ROB received the EMTALA form and spoke with the doctor and pt's nurse. Pt's nurse informed her she cannot fill out an EMTALA without giving report to the receiving facility's nurse. ROB reviewed the EMTALA and called Sophia back 3x's with no answer; ROB left [facility] for Sophia. ROB then contacted Betzaida who said she received ROB's message and as a result she has escalated the matter to her supervisors. ROB provided to her the name and number to the [facility] director for the [facility] supervisor rice milling to utilize. ROB provided an update to pt's medical staff. ROB team will continue to follow pt during his stay.
[2019-11-22] MEDS ORDERED: ADULT LOW DOSE81 MG PO (12:17)
[2019-11-22] MEDS ORDERED: CLOZAPINE50 MG PO ×2 (12:18)
[2019-11-22] MEDS ORDERED: DEPAKOTE SPRIN125 MG PO (12:18)
[2019-11-22] MEDS ORDERED: COLACE 100 MG100 MG PO (12:19)
[2019-11-22 15:04] LABS: BASOPHILS 0.6 % (0.0-2.0); EOSINOPHILS 2.3 % (0.0-3.0); HEMATOCRIT 39.3 % (42.0-52.0); HEMOGLOBIN 13.1 gm/dL (14.0-18.0); LYMPHOCYTES 25.1 % (24.0-44.0); MCH 33.9 pg (26.0-34.0); MCHC 33.4 g/dL (28.0-37.0); MCV 101.5 fL (80.0-100.0); MONOCYTES 8.4 % (1.0-8.0); PLATELET COUNT 162 thou/uL (150-400); POLYS 63.6 % (36.0-66.0); RBC 3.87 mil/uL (4.50-6.00); RDW 15.6 % (10.5-14.5); WBC 7.9 thou/uL (4.0-11.0)
[2019-11-22 15:41] LABS: ALBUMIN 3.3 g/dL (3.4-5.0); CALCIUM 9.9 mg/dL (8.5-10.1); POTASSIUM 4.5 mmol/L (3.5-5.1); TOTAL BILIRUBIN 0.2 mg/dL (<0.1-1.0); TOTAL PROTEIN 7.2 g/dL (6.4-8.2)
[2019-11-22 19:51] VITALS: BP 109/71
--- NOTE | 2019-11-23 02:48 | NUR ---
Assumed care on 11/22/19 @ 1900, in a w/c in the day room when spoken to noted to have a pleasant affect and told a joke then laughed at his own joke. Difficult to understand speach, however when asked to repeat himself does so and this improves understanding. A&O x 3 to person, place and time. Cooperated with assessment and medication administration. Takes meds whole with water. Hrrr, s1s2 noted, lungs auscultated diminished lower muñoz, equal lung sounds noted. Abd n x 4q, reports bm on 11/21, incontinent of bladder, wears brief. Presents well groomed apearance. Tylenol 650 provided for general pain 01/12, slept well until 0200, got up and sat in the day room, propelling self in w/c.
[2019-11-23 04:58] VITALS: BP 109/71
--- NOTE | 2019-11-23 06:07 | NUR ---
slept 7.6 hours overnight
[2019-11-23 07:10] VITALS: BP 111/81
--- NOTE | 2019-11-23 08:29 | NUR ---
Recvd call from [facility] - Betzaida Gwen - [phone]. Wanted to tell me that the "Gaurdian" would have to approve the transfer to the [facility]. I explained to her that the patient did not have a guardian and that our SW had left a VM expaining this for Hortensia yesterday afternoon after Hortensia called to tell us the same thing. Betzaida seemed hesitent at next steps and said this would need to be revieved with the Planetarium Technician and discussed as the patient was not competent to "consent". Asked what would happen if [facility] did not take patient. I explained that the patient would languish on an acute care unit which was not in his best interest. She said that [facility] will review and be back in touch with us. I stressed that this patient need to get off of the acute care unit and we were counting on the [facility] to step up.
--- NOTE | 2019-11-23 15:13 | NUR ---
Sw did not ahve gorup today due to COVID 19 restrictions. Pt was unabel to particpate in 1:1 .
[2019-11-23 19:24] VITALS: BP 99/62
--- NOTE | 2019-11-24 00:30 | NUR ---
Assumed care of patient this pm shift. Patient in good spirits and smiles as we talk. Patient is in the mileu sitting in a wheel chair observing others. Patient is difficult to understand at times, garbled speech. Patients affect is suspicious. Patient denies si. Patient takes medications whole. Patient is very independent. Patients assessment shows clear breath sounds, active bowel sounds, and s1 s2 heard with auscultation. Patient states that he had a bowel movement this evening. Patient is nonaggressive. We will continue to monitor.
[2019-11-24 07:17] VITALS: BP 114/76
--- NOTE | 2019-11-24 09:21 | NUR ---
POST DATE NOVEMBER 22: PATIENT HAD BEEN QUIET AND ISOLATIVE TO SELF. GUARDED AT TIMES AND HESIANT TO TALK - VERY DIFFICULT TO UNDERSTAND AT TIMES. INDENDENT AND BECOME IRRIATED WHEN ATTEMPTING TO ASSIST. PREFERS TO DO THINGS HIMSELF. REFUSED DINNER LAST NIGHT BUT ATE WELL FOR BREAKFAST AND LUNCH. WANTED TO SHOWER YESTERDAY BUT REFUSED AID OR UTILIZING BIGGER BATHROOM. TAKES MEDICATION WHOLE AND COMPLIANTLY. VERY SOFT SPOKEN WELL AND AT TIMES CAN BE UNDERSTOOD.
--- NOTE | 2019-11-24 18:38 | NUR ---
PATIENT BECAME BELIGERENT AND YELLING PROFANITIES AT STAFF WHEN WE ATTEMPTED TO ADVISE AGAINST SHOWERING WITHOUT MONITORING. HE REFUSED TO UNDERSTAND - THOUGH STAFF TRIED MULTIPLE TIMES TO EXPLAIN SAFETY SITUATION - FIRS TIME AGITATION WITNESSED BY STAFF.
[2019-11-24 19:30] VITALS: BP 108/66
--- NOTE | 2019-11-24 20:35 | NUR ---
Assumed care on 11/24/19 @ 1900, sitting in his w/c propelling throughout the mileu. Cooperated with assessment, calm and cooperative with care. Will continue to monitor.
--- NOTE | 2019-11-24 23:55 | NUR ---
Cooperated with medication administration, took meds whole with water. Retired to bed and is currently in bed with eyes closed, respirations even and unlabored. Bed in low position. Will continue to monitor q 12 minutes for patient safety.
[2019-11-25 02:48] VITALS: BP 108/66
[2019-11-25 07:30] VITALS: BP 117/72
[2019-11-25 11:43] VITALS: BP 117/72
--- NOTE | 2019-11-25 12:08 | NUR ---
PATIENT CARE ASSUMED AT 19:30 - PATIENT MUCH MORE PLEASANT AND AGREEABLE TODAY. SMILED AT STAFF WHEN APPROACHED - APOLOGIZED FOR BEHAVIOR YESTERDAY. STATED SLEPT WELL. SPEECH UNDERSTOOD WHEN PATIENT SPEAKS VERY SLOWLY. APPEITE GOOD - 100% FOR BREAKFAST. DID NOT PARTICPATE IN GROUP IN MORNING. TENDENCY TO RETIRE TO HIS ROOM AFTER MEALS AND SLEEP. ABLE TO TRANSFER SELF INDEPENDENTLY TO BED AND BATHROOM.
[2019-11-25 19:40] VITALS: BP 117/78
--- NOTE | 2019-11-26 00:55 | NUR ---
Assumed care on 11/25/19 @ 19:00, sitting in a w/c propelling self throughout the mileu. In general keeps to himself, interacts with peers and staff when spoken to. Cooperated with assessment, HRRR, S1S2 noted, Lung sounds diminished to auscultation in the lower muñoz, ABD N x 4Q. Takes meds whole with water. Speach is unclear, but pt is willing to repeat himself, and this improves comprehension of his meaning. Wears briefs, incontinent of urine, then goes into the bathroom and takes his brief off and puts a clean brief on. At this writing, in bed, eyes closed, respirations even and unlabored. Bed in low position, will continue to monitor q 12 for patient safety.
[2019-11-26 05:21] LABS: HEMOGLOBIN 13.9 gm/dL (14.0-18.0); MCH 33.9 pg (26.0-34.0); MCV 102.7 fL (80.0-100.0); RBC 4.09 mil/uL (4.50-6.00); RDW 15.7 % (10.5-14.5); WBC 5.8 thou/uL (4.0-11.0)
[2019-11-26 05:31] LABS: CALCIUM 9.6 mg/dL (8.5-10.1); MAGNESIUM 2.3 mg/dL (1.8-2.4); POTASSIUM 4.3 mmol/L (3.5-5.1)
[2019-11-26 08:30] VITALS: BP 124/79
[2019-11-26 14:37] VITALS: BP 124/79
--- NOTE | 2019-11-26 15:12 | NUR ---
SW group was canceled today due to COVID-19 restictions. SW attempted a check in wit Pt. Pt was lying in his bed when SW arrived. Sw called Pt's name and Pt begin to mumble. ROB michelle tto Pt's beside and Pt eyes were closed. Sw attempted to wake Pt but was unsucessful. SW will attempt check in later
--- NOTE | 2019-11-26 17:29 | NUR ---
PATIENT CARE ASSUMED AT 19:30 - PATIENT HAS BEEN MANUVERING AROUND UNIT INDEPENDENTLY IN HIS WHEELCHAIR. QUIET - MORE RESPONSIVE TO QUESTIONS ADDRESSED TO HIM AND UNDERSTANDABLE. COMPLIANT WITH MEDICATIONS, GOOD APPETITE. STATED HAD GOOD DAY - NO AGGRESSION OR AGITATION NOTED. ISOLATES TO ROOM AFTER MEALS. DOES NOT SOCIALIZE MUCH IN MILIEU. RETIRES TO HIS BED OFTEN AFTER MEALS. SELF SUFFICIENT - PREFERS TO DO THINGS HIMSELF.
[2019-11-26 19:28] VITALS: BP 116/81
--- NOTE | 2019-11-27 01:55 | NUR ---
ASSUMED CARE OF PT AT 1900HRS. PT IS CALM AND COOPERATIVE THIS SHIFT. PT TOOK ALL MEDS WHOLE. PT DENIED SI/HI/AH/VH AT THE TIME OF ASSESSMENT. PT LIKES TO BE INDEPENDENT ON HIS WC. PT WAS ABLE TO GET COMFORTABLE AND SLEEP PART OF THE SHIFT. VSS AND NO S/S OF ACUTE DISTRESS. WILL CONTINUE TO MONITOR.
[2019-11-27 08:50] VITALS: BP 107/55
[2019-11-27 10:23] VITALS: BP 107/55
--- NOTE | 2019-11-27 10:57 | NUR ---
Nutrition followup: PO highly variable but averaging 55% of meals past 3 days, 100% recent intake of ensure BID which adds a daily 700 kcals and 40 gm protein. Garbled speech, difficult to understand or obtain food preferences. Pt was placed on mechanically altered ground diet due to lack of teeth but documentation that he strongly dislikes the meats. Confirmed with nsg he generally wont eat the meat. Discussed other food sources to push such as eggs, dairy, cottage cheese, peanut butter and yogurt. Pt was initially on regular diet and admission assessment indicated usual diet as regular. Question if mechanical chopped diet would be tolerated and more acceptable to pt. Consider speech eval. Will increase ensure to all trays to increase protein provisions. Current weight showing a possible 4# decline since admission. Follow trends closely. Staff continues to assist with feeding pt. Keep as nutrition risk for now.
--- NOTE | 2019-11-27 11:02 | NUR ---
Nutrition: REC consider speech eval due to report that pt dislikes ground meats and usually wont eat them. Lacking teeth but question if chopped diet would be acceptable for pt.
--- NOTE | 2019-11-27 15:29 | NUR ---
SW did a check in with pt instead of group due to COVID-19 guidelines. Pt was in the restroom when SW did rounds.
--- NOTE | 2019-11-27 16:18 | NUR ---
CARE OF PATIENT ACQUIRED AT 1930. PATIENT HAS BEEN AGREEABLE AND COOPERATIVE WITH STAFF. MANUVERS AROUND WITH HIS WHEELCHAIR. PATIENT EXPLAINED EAGER TO LEAVE. MEDICATION COMLIANT. ADVISED GOING BACK TO FACILITY [facility] TOMORROW. APPEARED TO BE PLEASED. NO AGITATION OR IRRITATION NOTED. TEMPERATURES HAVE BEEN TAKEN FOR CLEARANCE OF COVID19 VIRUS EVERY FOUR HOURS. TEMPERATURES ALL WITHIN NORM. ABLE TO MANUVER AROUND INDEPENDENTLY AND TRANSFERS TO WHEELCHAIR AND BACK VERY INDEPENDENTLY.
[2019-11-27 19:40] VITALS: BP 123/80
--- NOTE | 2019-11-27 20:19 | NUR ---
Assumed care on 11/27/19 @ 1900, in w/c propelling self in the hallways and the mileu. Calm and cooperative with care. A&Ox3. Pleasant affect noted.
[2019-11-28 09:06] VITALS: BP 96/68
--- NOTE | 2019-11-28 09:15 | NUR ---
ROB D/C note ROB contacted [facility] and spoke to Apolonia Mobley who said the number for nursing report is [phone] and fax is [phone].
[2019-11-28] MEDS ORDERED: COLACE 100 MG100 MG PO (09:21)
[2019-11-28] MEDS ORDERED: DEPAKOTE SPRIN125 MG PO (09:21)
[2019-11-28] MEDS ORDERED: CLOZAPINE50 MG PO ×2 (09:21)
--- NOTE | 2019-11-28 11:45 | NUR ---
REPORT CALLED TO DELIA AT [facility] AND RX AND DC MEDICATION LIST FAXED PER REQUEST. SECURITY CONTACTED AND VALUABLES ENVELOPE RETURNED TO PT-ADMIT/DC BELONGINGS INVENTORY CHECKED AND ALL PERSONEL BELONGINGS SENT WITH PT AT TIME OF DC. DC INSTRUCTIONS REVIEWED WITH PT AND HE DENIES QUESTIONS/CONCERNS. DISCHARGED TO [facility] VIA WC-ACCOMPNIED BY THIS RN TO [facility] TRANSPORTATION STAFF/VAN. ALERT AT TIME OF DC-NEUTRAL AFFECT-DENIES ACUTE ANXIETY. NO NOTED OR REPORTED PSYCHOSIS,SH,HI/SI.
--- NOTE | 2019-11-29 16:07 | EKG ---
[facility] [place] [address] ELECTROCARDIOGRAM REPORT Name: JUDE BESS Room #: 528A-A [facility] IN M.R.#: [id number] Admission: 11/07/19 Attend Phys: Juanito Cardoza DO Discharge: 11/28/19 Date of : 50 Report #: [id number] THIS REPORT FOR: cc: FAM - Family physician unknown FAM - Family physician unknown Juvenal Quintana MD [facility] ~ THIS REPORT FOR: //name// [facility] ED Test Date: 2019-11-07 Test Time: 11:19:26 Pat Name: JUDE BESS [facility] Gender: M Soc Analyst: RICHARD : 1950 Requested By: Kiran Moore Order Number: [id number] MD: Measurements Intervals [place] Rate: 88 P: 35 WY: 148 QRS: 40 QRSD: 88 T: 86 QT: 344 QTc: 417 Interpretive Statements Sinus rhythm Abnormal R-wave progression, early transition Abnormal T, consider ischemia, anterior leads No previous ECG available for comparison Electronically Signed On 11-08-2019 8:28:14 [employer]AMP [employer]UCK [employer] by Juvenal Quintana [email or web address] <ELECTRONICALLY SIGNED> By: Juvenal Quintana MD, [facility] 11/29/19 1607 0828 1119 Juvenal Quintana MD, [facility] /EPI
--- NOTE | 2019-11-30 21:08 | D ---
[facility] [place] [address] DISCHARGE SUMMARY Name: JUDE BESS Room #: 528A-A [facility] IN M.R.#: [id number] Admission: 11/07/19 Attend Phys: Juanito Cardoza DO Discharge: 11/28/19 Date of : 50 Report #: [id number] THIS REPORT FOR: cc: KIM - Family physician unknown FAM - Family physician unknown Juanito Cardoza DO ~ THIS REPORT FOR: //name// CC: Juanito ALVAREZ unknown DATE OF SERVICE: 11/28/2019 INPATIENT PSYCHIATRIC DISCHARGE SUMMARY ATTENDING PHYSICIAN: Juanito Cardoza DO ENGRAVER ORNAMENTAL DESIGN AT THE TIME OF DISCHARGE: Juanito Tate MD DISCHARGE DIAGNOSES: Major neurocognitive disorder, etiology unspecified with behavioral disturbance, improved; schizophrenia current and by history. DISCHARGE MEDICATIONS: Depakote Sprinkles 750 mg p.o. b.i.d. for mood stabilization; Clozaril 300 mg p.o. at 0800, 450 mg p.o. at 2000 for schizophrenia; docusate 100 mg p.o. b.i.d. for bowel motility, hold if diarrhea; aspirin 81 mg p.o. daily for cardioprotection. DISCHARGE DIET: Regular diet. ACTIVITY LEVEL: As tolerated. The patient requires 24-hour supervision and assistance due to some elopement risk. This was emphasized by phone call to Varghese at [facility] due to patient's admission to this hospital being precipitated by his elopement from the same facility in the evening. LABORATORY DATA: This admission, most recently a CBC, hemoglobin 13.9, hematocrit 42.0, white count 5.8, platelet count 179 as on 11/26/2019. On 11/22/2019, his absolute neutrophil count was 5.0 and white count of 7.9, so he is tolerating Clozaril well. Chemistries noted to be on 11/26/2019, sodium 139, potassium 4.3, chloride 102, bicarbonate 32, BUN 13, creatinine 1.0, estimated GFR 74, glucose 91. Transaminases; AST 18, ALT 21, alkaline phosphatase 67, total bilirubin was 0.2; those were done on 11/22/2019. Most recent magnesium was normal at 2.3 on 11/26/2019. Calcium was 9.6 on 11/26/2019. Urinalysis was normal. Toxicology was negative at the time of admission, was negative for all substances. [address] [address] DISCHARGE SUMMARY Name: JUDE BESS Room #: 528A-A [facility] IN [facility]#: [id number] Admission: 11/07/19 Attend Phys: Juanito Cardoza DO Discharge: 11/28/19 Date of : 50 Report #: [id number] REASON FOR ADMISSION: Back on 11/07/2019 is as follows: A 69-year-old male, picked up by police, brought to the [facility] operated by [facility]. He was obviously demented. I was contacted ____ nurse practitioner there asked to accept care for him in our geriatric psych unit which I did. HOSPITAL COURSE: The patient was admitted to the geriatric psychiatry unit and it took about an extra 24 hours to find out he was a resident of [facility]. It turns out he has a documented head end desizing machine operator in [place], which is essentially a conservator for veterans, but no guardianship documentation could be obtained despite his head end desizing machine operator's, Mr. Andujar's claims that he has a guardian. During this admission, we did increase his Clozaril to about 150 mg. I believe his home dose was around 300 mg twice a day and we increased it from 300 in morning to 450 at night. We saw a little less disorganization and less resistance with cares in the last week and a half. Certainly as they mentioned second half of the admission, the patient was cooperating well. For some reason, the patient prefers female staff to assist him with bathing. I did relay that to the receiving facility, [facility]. At the day of discharge, the patient was not suicidal or homicidal. PHYSICAL EXAMINATION: VITAL SIGNS: Temperature 36.5, pulse 86, respirations 20, BP 96/68, O2 sat 96%. MUSCULOSKELETAL: He can ambulate but he chose to remain in the wheelchair. MENTAL STATUS EXAMINATION: This is a well-developed, slightly unkempt male, appearing stated age. Attention limited. Concentration limited. Speech is normal rate, often nonsensical. No psychomotor agitation. No psychomotor retardation. Denied SI or HI. Denied auditory, visual, or tactile hallucination. Memory grossly impaired. Insight impaired, judgment impaired. Fund of knowledge below average. PROGNOSIS: For this patient is guarded due to his neurodegenerative disorder. The patient should have psychiatric followup at facility as well as primary care as well as provisions to make sure he does not elope. <ELECTRONICALLY SIGNED> By: Juanito Cardoza DO 11/30/19 2108 1404 1620 Juanito Cardoza DO /nt
== END 2019-11-28 11:22 | DRG 884 ==
LOC: ER 10:47 → EROBS 13:17 → SBH 13:17
PROVIDERS: Emergency Medicine; Internal Medicine; Psychiatry & Neurology Psychiatry; ADMIT Psychiatry & Neurology Psychiatry
DX: F01.51 Vascular dementia, unspecified severity, with behavioral disturbance (principal); F20.9 Schizophrenia, unspecified; I67.9 Cerebrovascular disease, unspecified; I95.9 Hypotension, unspecified; Z79.899 Other long term (current) drug therapy
CPT/HCPCS: 10880